=== PATIENT | male | born 1970 | race African-American/Black ===

== ENCOUNTER 2021-08-07 20:10 | Inpatient (IN) | payer MEDICAID ==
[~2021-08-07] VITALS: Ht 172.7 cm; Wt 68.8 kg
[~2021-08-07 20:10] MED LIST: AMIT10TA8 PO; ATEN-60 PO; GABA300C11 GT; GLIP5TAB12 PO; LIS20T GT
[2021-08-07 22:05] LABS: Basophils # (auto) 0.1 10 ^3/uL (0-0.2); Eosinophils # (auto) 0.2 10 ^3/uL (0-0.8); Lymphocytes # (auto) 1.1 10 ^3/uL (0.4-5.4); Monocytes # (auto) 0.7 10 ^3/uL (0-1.3); Monocytes % (auto) 9.7 % (0.0-12.0); Neutrophils # (auto) 5.5 10 ^3/uL (1.6-8.6); White Blood Cell 7.6 10^3/uL (4.4-10.8)
[2021-08-07 22:07] LABS: Eosinophils % (auto) 2.7 % (0.0-7.0); Hemoglobin 7.3 g/dL (13.5-17.5); Lymphocytes % (auto) 13.9 % (10.0-50.0); Mean Corpuscular Hemoglobin 25.9 pg (28.0-32.0); Mean Corpuscular Hgb Conc. 31.8 g/dL (32.0-36.0); Mean Corpuscular Volume 81.6 fL (80.0-100.0); Neutrophils % (auto) 72.7 % (37.0-80.0); Nucleated Red Blood Cells % 0.1 %; Red Blood Cells 2.81 10^6/uL (4.5-5.90)
[2021-08-07 22:08] LABS: Red Cell Distribution Width 20.1 % (11.8-14.3)
[2021-08-07 22:22] LABS: Potassium 3.9 mmol/L (3.5-5.1)
[2021-08-07 22:28] LABS: Albumin 2.4 g/dL (3.4-5.0); BUN/Creatinine Ratio 9.8; Bilirubin, Total 1.4 mg/dL (0.2-1.0); Calcium 9.5 mg/dL (8.5-10.1); Total Protein 7.9 g/dL (6.4-8.2)
[2021-08-08] MEDS ORDERED: dilTIAZem 25 MG/5 ML VIAL IV ONE ×3 (00:15→06:00)
[2021-08-08] MEDS ORDERED: DEXTROSE (50%) 50ML SYRG IV ONE (01:30)
[2021-08-08 04:15] VITALS: BP 144/72
[2021-08-08 04:37] VITALS: BP 154/74
[2021-08-08 04:55] VITALS: BP 160/72
[2021-08-08] MEDS ORDERED: ADENOSINE 6 MG/2 ML INJ IV ONE (06:30)
[2021-08-08] MEDS ORDERED: METOPROLOL TARTRATE 1MG/1ML-5ML VIAL IV ONE ×2 (06:42→07:00)
[2021-08-08] MEDS ORDERED: ONDANSETRON HCL 4 MG/2 ML VIAL IV PRN (07:00)
[2021-08-08] MEDS ORDERED: MORPHINE SULFATE INJECTION 2 MG/ML SYRG IV PRN (07:00)
[2021-08-08] MEDS ORDERED: LABETALOL HCL 5 MG/ML 4ML SYRINGE IV ONE (07:00)
[2021-08-08] MEDS ORDERED: TEMAZEPAM 15 MG CAP PO PRN (07:00)
[2021-08-08] MEDS ORDERED: ACETAMINOPHEN 325 MG TAB PO PRN (07:00)
[2021-08-08] MEDS ORDERED: AMIODARONE 450mg/250ml AE 250 ML IV SCH ×2 (07:45→13:45)
[2021-08-08] MEDS ORDERED: AMIODARONE HCL 150 MG in D5W 5% 100 ML IV ONE (07:45)
[2021-08-08] MEDS ORDERED: AMIODARONE HCL (50 MG/ ML) 3 ML VIAL IV ONE (07:56)
[2021-08-08] MEDS ORDERED: AMIODARONE 450mg/250ml AE 250 ML IV ONE (07:57)
[2021-08-08] MEDS ORDERED: SODIUM CHL 0.9% 1000 ML BAG XX ONE (09:15)
[2021-08-08] MEDS: ZINC SULFATE 220mg CAP or TAB PO SCH (09:30)
[2021-08-08] MEDS: MULTIPLE VITAMIN TAB PO SCH (09:30)
[2021-08-08] MEDS: PANTOPRAZOLE 40 MG/10 ML VIAL INJ IV SCH ×2 (09:30→22:29)
[2021-08-08] MEDS: ASCORBIC ACID 500 MG TAB PO SCH ×2 (09:31→22:29)
[2021-08-08 10:31] LABS: Hematocrit 22.5 % (41.0-53.0); Hemoglobin 7.3 g/dL (13.5-17.5)
[2021-08-08 10:35] LABS: INR 1.22 (0.9-1.15)
[2021-08-08] MEDS ORDERED: GOLYTELY 4L KIT PO ONE (13:00)
[2021-08-08 14:14] LABS: Free T4 (Free Thyroxine) 4.36 ng/dL (0.89-1.76)
[2021-08-08 14:20] LABS: Free T3 17.4 pg/mL (2.3-4.2)
[2021-08-08] MEDS: methIMAzole 5 MG TAB PO SCH ×2 (14:46→22:29)
[2021-08-08 15:33] LABS: Basophils # (auto) 0 10 ^3/uL (0-0.2); Basophils % (auto) 0.6 % (0.0-2.0); Eosinophils # (auto) 0.2 10 ^3/uL (0-0.8); Eosinophils % (auto) 2.2 % (0.0-7.0); Hematocrit 22.7 % (41.0-53.0); Hemoglobin 7.8 g/dL (13.5-17.5); Lymphocytes # (auto) 0.8 10 ^3/uL (0.4-5.4); Lymphocytes % (auto) 11.2 % (10.0-50.0); Mean Corpuscular Hgb Conc. 34.3 g/dL (32.0-36.0); Mean Corpuscular Volume 81.6 fL (80.0-100.0); Monocytes # (auto) 0.7 10 ^3/uL (0-1.3); Monocytes % (auto) 9.9 % (0.0-12.0); Neutrophils # (auto) 5.4 10 ^3/uL (1.6-8.6); Neutrophils % (auto) 76.1 % (37.0-80.0); Nucleated Red Blood Cells % 0.1 %; Red Blood Cells 2.79 10^6/uL (4.5-5.90); Red Cell Distribution Width 18.7 % (11.8-14.3); White Blood Cell 7.1 10^3/uL (4.4-10.8)
[2021-08-08] MEDS ORDERED: ALPRAZolam 0.5 MG TAB PO PRN (16:45)
[2021-08-08] MEDS ORDERED: EPOETIN ALFA-EPBX 10,000 UNIT/1ML VIAL SC ONE (21:00)
[2021-08-09] MEDS ORDERED: METOPROLOL TARTRATE 1MG/1ML-5ML VIAL IV ONE (02:00)
[2021-08-09] MEDS: methIMAzole 5 MG TAB PO SCH ×3 (06:00→21:59)
[2021-08-09] MEDS ORDERED: METOPROLOL TARTRATE 1MG/1ML-5ML VIAL IV PRN (06:30)
[2021-08-09] MEDS: PANTOPRAZOLE 40 MG/10 ML VIAL INJ IV SCH ×2 (10:00→21:58)
[2021-08-09] MEDS: ZINC SULFATE 220mg CAP or TAB PO SCH (10:12)
[2021-08-09] MEDS: AMIODARONE HCL 200 MG TAB PO SCH ×2 (10:12→21:58)
[2021-08-09] MEDS: MULTIPLE VITAMIN TAB PO SCH (10:12)
[2021-08-09] MEDS: ASCORBIC ACID 500 MG TAB PO SCH ×2 (10:13→22:00)
[2021-08-09] MEDS: PROPRANOLOL HCL 20 MG TAB PO SCH ×2 (14:08→21:59)
[2021-08-09 18:00] VITALS: BP 147/62
[2021-08-09 22:00] VITALS: BP 147/62
[2021-08-10] VITALS (7 sets, daily range): BP systolic 122–142; BP diastolic 65–88
[2021-08-10 00:29] LABS: Basophils # (auto) 0.1 10 ^3/uL (0-0.2); Basophils % (auto) 0.8 % (0.0-2.0); Eosinophils # (auto) 0.1 10 ^3/uL (0-0.8); Eosinophils % (auto) 0.8 % (0.0-7.0); Hematocrit 24.8 % (41.0-53.0); Hemoglobin 8.1 g/dL (13.5-17.5); Lymphocytes # (auto) 0.8 10 ^3/uL (0.4-5.4); Mean Corpuscular Hemoglobin 26.6 pg (28.0-32.0); Mean Corpuscular Hgb Conc. 32.7 g/dL (32.0-36.0); Mean Corpuscular Volume 81.3 fL (80.0-100.0); Monocytes # (auto) 0.9 10 ^3/uL (0-1.3); Monocytes % (auto) 10.8 % (0.0-12.0); Neutrophils # (auto) 6.7 10 ^3/uL (1.6-8.6); Neutrophils % (auto) 78.6 % (37.0-80.0); Red Blood Cells 3.05 10^6/uL (4.5-5.90); Red Cell Distribution Width 18.5 % (11.8-14.3); White Blood Cell 8.6 10^3/uL (4.4-10.8)
[2021-08-10 02:53] LABS: Albumin 1.9 g/dL (3.4-5.0); BUN/Creatinine Ratio 8.9; Calcium 8.3 mg/dL (8.5-10.1); Potassium 3.6 mmol/L (3.5-5.1)
[2021-08-10 02:56] LABS: Bilirubin, Total 1.2 mg/dL (0.2-1.0); Total Protein 6.2 g/dL (6.4-8.2)
[2021-08-10] MEDS: NITROGLYCERIN 0.4 MG SL TAB SL PRN (03:20)
[2021-08-10] MEDS ORDERED: GABA300C10 PO (05:32)
[2021-08-10] MEDS ORDERED: LOP2C PO (05:32)
[2021-08-10] MEDS: methIMAzole 5 MG TAB PO SCH ×3 (06:15→22:23)
[2021-08-10] MEDS: PROPRANOLOL HCL 20 MG TAB PO SCH ×3 (06:15→22:22)
[2021-08-10] MEDS ORDERED: SODIUM CHL 0.9% 1000 ML BAG XX ONE (07:00)
[2021-08-10] MEDS: ZINC SULFATE 220mg CAP or TAB PO SCH (10:02)
[2021-08-10] MEDS: PANTOPRAZOLE 40 MG/10 ML VIAL INJ IV SCH ×2 (10:02→22:21)
[2021-08-10] MEDS: AMIODARONE HCL 200 MG TAB PO SCH ×2 (10:03→22:21)
[2021-08-10] MEDS: MULTIPLE VITAMIN TAB PO SCH (10:04)
[2021-08-10] MEDS: ASCORBIC ACID 500 MG TAB PO SCH ×2 (10:04→22:23)
[2021-08-10] MEDS ORDERED: EPOETIN ALFA-EPBX 10,000 UNIT/1ML VIAL SC ONE (21:00)
[2021-08-11 04:40] VITALS: BP 112/59
[2021-08-11] MEDS: PROPRANOLOL HCL 20 MG TAB PO SCH ×3 (06:53→22:02)
[2021-08-11] MEDS: methIMAzole 5 MG TAB PO SCH ×3 (06:59→22:02)
[2021-08-11 09:00] VITALS: BP 135/71
[2021-08-11] MEDS: PANTOPRAZOLE 40 MG/10 ML VIAL INJ IV SCH ×2 (10:00→22:01)
[2021-08-11] MEDS: ZINC SULFATE 220mg CAP or TAB PO SCH (10:00)
[2021-08-11] MEDS ORDERED: GOLYTELY 4L KIT PO ONE (10:00)
[2021-08-11] MEDS: AMIODARONE HCL 200 MG TAB PO SCH ×2 (10:01→22:01)
[2021-08-11] MEDS: MULTIPLE VITAMIN TAB PO SCH (10:01)
[2021-08-11] MEDS: ASCORBIC ACID 500 MG TAB PO SCH ×2 (10:01→22:02)
[2021-08-11 13:00] VITALS: BP 132/68
[2021-08-11] MEDS: HYDROcodone-ACET 5/325MG TAB PO PRN (13:58)
[2021-08-11 21:33] VITALS: BP 116/63
[2021-08-12 04:34] VITALS: BP 115/58
[2021-08-12] MEDS: PROPRANOLOL HCL 20 MG TAB PO SCH ×3 (05:29→22:33)
[2021-08-12] MEDS: methIMAzole 5 MG TAB PO SCH ×3 (05:30→22:31)
[2021-08-12 06:04] LABS: Eosinophils # (auto) 0.2 10 ^3/uL (0-0.8)
[2021-08-12 06:06] LABS: Basophils # (auto) 0.1 10 ^3/uL (0-0.2); Basophils % (auto) 0.6 % (0.0-2.0); Lymphocytes # (auto) 1.1 10 ^3/uL (0.4-5.4); Lymphocytes % (auto) 11.2 % (10.0-50.0); Mean Corpuscular Hemoglobin 26.6 pg (28.0-32.0); Mean Corpuscular Hgb Conc. 32.3 g/dL (32.0-36.0); Mean Corpuscular Volume 82.4 fL (80.0-100.0); Monocytes % (auto) 9.7 % (0.0-12.0); Neutrophils # (auto) 7.7 10 ^3/uL (1.6-8.6); Neutrophils % (auto) 76.5 % (37.0-80.0); Red Cell Distribution Width 18.1 % (11.8-14.3)
[2021-08-12 06:09] LABS: INR 1.25 (0.9-1.15); Partial Thromboplastin Time 31.2 sec (23.6-33.0)
[2021-08-12 09:00] VITALS: BP 120/59
[2021-08-12] MEDS ORDERED: MIDAZOLAM HCL 5 MG/ML-1ML VIAL ONE (09:03)
[2021-08-12] MEDS ORDERED: diphenhdrAMINE HCL 50 MG/1 ML VL ONE (09:03)
[2021-08-12] MEDS ORDERED: fentaNYL CITRATE 100 MCG/2 ML VL ONE (09:03)
[2021-08-12] MEDS ORDERED: SUCR5CHW PO (09:52)
[2021-08-12] MEDS ORDERED: CALC667C PO (09:52)
[2021-08-12] MEDS ORDERED: VENL37.588 PO (09:52)
[2021-08-12] MEDS ORDERED: LOP2C PO (09:52)
[2021-08-12] MEDS ORDERED: ATE50T PO (09:52)
[2021-08-12] MEDS: PANTOPRAZOLE 40 MG/10 ML VIAL INJ IV SCH ×2 (09:57→22:30)
[2021-08-12] MEDS ORDERED: ARIP1TAB7 PO (09:57)
[2021-08-12] MEDS: ZINC SULFATE 220mg CAP or TAB PO SCH (09:57)
[2021-08-12] MEDS ORDERED: TRAZ100T3 PO (09:57)
[2021-08-12] MEDS ORDERED: LOSA-69 PO (09:57)
[2021-08-12] MEDS ORDERED: AMLO-496 PO (09:57)
[2021-08-12] MEDS ORDERED: VENL75CA78 PO (09:57)
[2021-08-12] MEDS ORDERED: ERGO1CAP23 PO (09:57)
[2021-08-12] MEDS: ASCORBIC ACID 500 MG TAB PO SCH ×2 (09:58→22:32)
[2021-08-12] MEDS: AMIODARONE HCL 200 MG TAB PO SCH ×2 (09:58→22:31)
[2021-08-12] MEDS: MULTIPLE VITAMIN TAB PO SCH (09:58)
[2021-08-12] MEDS: HYDROcodone-ACET 5/325MG TAB PO PRN (10:21)
[2021-08-12 12:58] VITALS: BP 112/59
[2021-08-12 14:05] VITALS: BP 105/55
[2021-08-12 17:00] VITALS: BP 130/63
[2021-08-12 22:00] VITALS: BP 118/62
[2021-08-12] MEDS: HYDROCORTISONE ACET 25 MG RECTAL SUPP PR SCH (22:32)
[2021-08-13] MEDS: HYDROcodone-ACET 5/325MG TAB PO PRN ×2 (00:53→14:43)
[2021-08-13 05:00] VITALS: BP 117/64
[2021-08-13] MEDS: PROPRANOLOL HCL 20 MG TAB PO SCH ×3 (05:30→22:52)
[2021-08-13] MEDS: methIMAzole 5 MG TAB PO SCH ×3 (05:30→22:41)
[2021-08-13 06:09] LABS: Hemoglobin 8.8 g/dL (13.5-17.5)
[2021-08-13 06:10] LABS: Hematocrit 26.6 % (41.0-53.0)
[2021-08-13] MEDS ORDERED: SODIUM CHL 0.9% 1000 ML BAG XX ONE (07:00)
[2021-08-13 09:00] VITALS: BP 125/69
[2021-08-13] MEDS: PANTOPRAZOLE 40 MG/10 ML VIAL INJ IV SCH ×2 (10:55→22:39)
[2021-08-13] MEDS: ZINC SULFATE 220mg CAP or TAB PO SCH (10:55)
[2021-08-13] MEDS: MULTIPLE VITAMIN TAB PO SCH (10:56)
[2021-08-13] MEDS: ASCORBIC ACID 500 MG TAB PO SCH ×2 (10:56→22:43)
[2021-08-13] MEDS: AMIODARONE HCL 200 MG TAB PO SCH ×2 (10:57→22:42)
[2021-08-13 13:00] VITALS: BP 123/76
[2021-08-13] MEDS: NITROGLYCERIN 0.4 MG SL TAB SL PRN (14:51)
[2021-08-13 17:00] VITALS: BP 131/69
[2021-08-13] MEDS ORDERED: EPOETIN ALFA-EPBX 4,000 UNIT/ML VIAL SC ONE (21:00)
[2021-08-13 22:00] VITALS: BP 122/68
[2021-08-13] MEDS: DOXYCYCLINE 100 MG TAB/CAP PO SCH (22:42)
[2021-08-13] MEDS: APIXABAN 5 MG TAB PO SCH (22:42)
[2021-08-13] MEDS: HYDROCORTISONE ACET 25 MG RECTAL SUPP PR SCH (22:49)
[2021-08-14 05:02] VITALS: BP 119/64
[2021-08-14] MEDS: methIMAzole 5 MG TAB PO SCH ×3 (05:51→22:38)
[2021-08-14] MEDS: PROPRANOLOL HCL 20 MG TAB PO SCH ×3 (05:51→22:31)
[2021-08-14 08:07] LABS: Basophils # (auto) 0.1 10 ^3/uL (0-0.2); Basophils % (auto) 0.5 % (0.0-2.0); Eosinophils # (auto) 0.3 10 ^3/uL (0-0.8); Eosinophils % (auto) 2.5 % (0.0-7.0); Hematocrit 26.3 % (41.0-53.0); Hemoglobin 8.6 g/dL (13.5-17.5); Lymphocytes % (auto) 9.2 % (10.0-50.0); Mean Corpuscular Hgb Conc. 32.9 g/dL (32.0-36.0); Mean Corpuscular Volume 81.9 fL (80.0-100.0); Monocytes # (auto) 0.8 10 ^3/uL (0-1.3); Monocytes % (auto) 7.4 % (0.0-12.0); Neutrophils # (auto) 8.8 10 ^3/uL (1.6-8.6); Neutrophils % (auto) 80.4 % (37.0-80.0); Red Blood Cells 3.21 10^6/uL (4.5-5.90); Red Cell Distribution Width 18.1 % (11.8-14.3); White Blood Cell 10.9 10^3/uL (4.4-10.8)
[2021-08-14] MEDS: ZINC SULFATE 220mg CAP or TAB PO SCH (10:34)
[2021-08-14] MEDS: MULTIPLE VITAMIN TAB PO SCH (10:34)
[2021-08-14] MEDS: APIXABAN 5 MG TAB PO SCH (10:34)
[2021-08-14] MEDS: AMIODARONE HCL 200 MG TAB PO SCH ×2 (10:34→22:30)
[2021-08-14] MEDS: DOXYCYCLINE 100 MG TAB/CAP PO SCH ×2 (10:35→22:30)
[2021-08-14] MEDS: ASCORBIC ACID 500 MG TAB PO SCH ×2 (10:35→22:30)
[2021-08-14] MEDS: PANTOPRAZOLE 40 MG/10 ML VIAL INJ IV SCH ×2 (10:37→22:32)
[2021-08-14 12:50] VITALS: BP 124/63
[2021-08-14 16:53] VITALS: BP 102/59
[2021-08-14 22:00] VITALS: BP 134/70
[2021-08-14] MEDS: APIXABAN 2.5 MG TAB PO SCH (22:30)
[2021-08-14] MEDS: AMOXICILLIN/CLAVULAN 500 MG TAB PO SCH (22:31)
[2021-08-14] MEDS: HYDROCORTISONE ACET 25 MG RECTAL SUPP PR SCH (22:32)
[2021-08-15 05:02] VITALS: BP 122/62
[2021-08-15] MEDS: methIMAzole 5 MG TAB PO SCH ×3 (06:16→22:46)
[2021-08-15] MEDS: PROPRANOLOL HCL 20 MG TAB PO SCH ×3 (06:17→22:47)
[2021-08-15 08:06] LABS: RPR Non Reactive (Non Reactive)
[2021-08-15 09:00] VITALS: BP 119/80
[2021-08-15] MEDS: APIXABAN 2.5 MG TAB PO SCH ×2 (09:28→22:46)
[2021-08-15] MEDS: DOXYCYCLINE 100 MG TAB/CAP PO SCH ×2 (09:29→22:47)
[2021-08-15] MEDS: ASCORBIC ACID 500 MG TAB PO SCH ×2 (09:30→22:47)
[2021-08-15] MEDS: MULTIPLE VITAMIN TAB PO SCH (09:31)
[2021-08-15] MEDS: ZINC SULFATE 220mg CAP or TAB PO SCH (09:31)
[2021-08-15] MEDS: PANTOPRAZOLE 40 MG/10 ML VIAL INJ IV SCH ×2 (09:32→22:48)
[2021-08-15] MEDS: AMIODARONE HCL 200 MG TAB PO SCH ×2 (09:32→22:46)
[2021-08-15] MEDS: AMOXICILLIN/CLAVULAN 500 MG TAB PO SCH ×2 (09:33→22:46)
[2021-08-15 13:00] VITALS: BP 128/83
[2021-08-15 17:15] VITALS: BP 149/73
[2021-08-15] MEDS: SEVELAMER 800 MG TAB PO SCH (17:51)
[2021-08-15 22:00] VITALS: BP 120/66
[2021-08-15] MEDS: FLORASTOR (S. BOULARDII) 250 MG CAP PO SCH (22:46)
[2021-08-15] MEDS: HYDROCORTISONE ACET 25 MG RECTAL SUPP PR SCH (22:47)
[2021-08-15] MEDS: MORPHINE SULFATE INJECTION 2 MG/ML SYRG IV PRN (23:15)
[2021-08-16 05:00] VITALS: BP 106/62
[2021-08-16] MEDS: methIMAzole 5 MG TAB PO SCH ×3 (05:44→22:42)
[2021-08-16] MEDS: HYDROcodone-ACET 5/325MG TAB PO PRN ×2 (05:45→12:15)
[2021-08-16] MEDS: PROPRANOLOL HCL 20 MG TAB PO SCH ×3 (05:49→22:45)
[2021-08-16] MEDS: MORPHINE SULFATE INJECTION 2 MG/ML SYRG IV PRN (06:58)
[2021-08-16] MEDS ORDERED: SODIUM CHL 0.9% 1000 ML BAG XX ONE (07:00)
[2021-08-16] MEDS: SEVELAMER 800 MG TAB PO SCH ×3 (08:18→18:03)
[2021-08-16] MEDS: AMOXICILLIN/CLAVULAN 500 MG TAB PO SCH ×2 (08:19→22:41)
[2021-08-16] MEDS: ZINC SULFATE 220mg CAP or TAB PO SCH (08:19)
[2021-08-16] MEDS: PANTOPRAZOLE 40 MG/10 ML VIAL INJ IV SCH ×2 (08:19→22:43)
[2021-08-16] MEDS: FLORASTOR (S. BOULARDII) 250 MG CAP PO SCH ×2 (08:20→22:42)
[2021-08-16] MEDS: APIXABAN 2.5 MG TAB PO SCH ×2 (08:20→22:42)
[2021-08-16] MEDS: DOXYCYCLINE 100 MG TAB/CAP PO SCH ×2 (08:20→22:42)
[2021-08-16] MEDS: MULTIPLE VITAMIN TAB PO SCH (08:20)
[2021-08-16] MEDS: AMIODARONE HCL 200 MG TAB PO SCH ×2 (08:20→22:42)
[2021-08-16] MEDS: ASCORBIC ACID 500 MG TAB PO SCH ×2 (08:21→22:44)
[2021-08-16 08:40] LABS: Basophils # (auto) 0.1 10 ^3/uL (0-0.2); Basophils % (auto) 0.5 % (0.0-2.0); Eosinophils # (auto) 0.3 10 ^3/uL (0-0.8); Eosinophils % (auto) 2.1 % (0.0-7.0); Hematocrit 28.7 % (41.0-53.0); Hemoglobin 9.2 g/dL (13.5-17.5); Lymphocytes # (auto) 1.4 10 ^3/uL (0.4-5.4); Lymphocytes % (auto) 8.8 % (10.0-50.0); Mean Corpuscular Hemoglobin 25.9 pg (28.0-32.0); Mean Corpuscular Hgb Conc. 32.1 g/dL (32.0-36.0); Mean Corpuscular Volume 80.6 fL (80.0-100.0); Monocytes # (auto) 1.1 10 ^3/uL (0-1.3); Monocytes % (auto) 6.6 % (0.0-12.0); Neutrophils # (auto) 13.4 10 ^3/uL (1.6-8.6); Red Blood Cells 3.56 10^6/uL (4.5-5.90); Red Cell Distribution Width 18.2 % (11.8-14.3); White Blood Cell 16.3 10^3/uL (4.4-10.8)
[2021-08-16 08:54] LABS: Albumin 1.7 g/dL (3.4-5.0); Calcium 8.1 mg/dL (8.5-10.1); Magnesium 2.5 mg/dL (1.6-2.6)
[2021-08-16 08:58] LABS: BUN/Creatinine Ratio 6.5; Bilirubin, Total 1.5 mg/dL (0.2-1.0)
[2021-08-16 09:00] VITALS: BP 88/51
[2021-08-16 13:00] VITALS: BP 95/53
[2021-08-16 17:00] VITALS: BP 119/63
[2021-08-16] MEDS ORDERED: EPOETIN ALFA-EPBX 4,000 UNIT/ML VIAL SC ONE (21:00)
[2021-08-16 22:00] VITALS: BP 116/61
[2021-08-16] MEDS: HYDROCORTISONE ACET 25 MG RECTAL SUPP PR SCH (22:43)
[2021-08-17 05:00] VITALS: BP 124/62
[2021-08-17 05:56] LABS: Basophils # (auto) 0.1 10 ^3/uL (0-0.2); Basophils % (auto) 0.5 % (0.0-2.0); Eosinophils # (auto) 0.4 10 ^3/uL (0-0.8); Eosinophils % (auto) 3.4 % (0.0-7.0); Hematocrit 27.1 % (41.0-53.0); Hemoglobin 8.8 g/dL (13.5-17.5); Lymphocytes # (auto) 1.1 10 ^3/uL (0.4-5.4); Lymphocytes % (auto) 10.9 % (10.0-50.0); Mean Corpuscular Hemoglobin 26.5 pg (28.0-32.0); Mean Corpuscular Hgb Conc. 32.4 g/dL (32.0-36.0); Mean Corpuscular Volume 81.6 fL (80.0-100.0); Monocytes # (auto) 0.8 10 ^3/uL (0-1.3); Monocytes % (auto) 7.9 % (0.0-12.0); Neutrophils # (auto) 8.1 10 ^3/uL (1.6-8.6); Neutrophils % (auto) 77.3 % (37.0-80.0); Red Blood Cells 3.32 10^6/uL (4.5-5.90); White Blood Cell 10.5 10^3/uL (4.4-10.8)
[2021-08-17 06:10] LABS: INR 1.24 (0.9-1.15)
[2021-08-17] MEDS: methIMAzole 5 MG TAB PO SCH ×3 (06:14→21:36)
[2021-08-17] MEDS: PROPRANOLOL HCL 20 MG TAB PO SCH ×3 (06:15→21:39)
[2021-08-17] MEDS: SEVELAMER 800 MG TAB PO SCH ×3 (08:00→17:57)
[2021-08-17] MEDS: PANTOPRAZOLE 40 MG/10 ML VIAL INJ IV SCH ×2 (08:16→21:40)
[2021-08-17] MEDS: ZINC SULFATE 220mg CAP or TAB PO SCH (08:17)
[2021-08-17] MEDS: AMOXICILLIN/CLAVULAN 500 MG TAB PO SCH ×2 (08:17→21:37)
[2021-08-17] MEDS: AMIODARONE HCL 200 MG TAB PO SCH ×2 (08:18→21:39)
[2021-08-17] MEDS: APIXABAN 2.5 MG TAB PO SCH ×2 (08:19→21:37)
[2021-08-17] MEDS: FLORASTOR (S. BOULARDII) 250 MG CAP PO SCH ×2 (08:20→21:39)
[2021-08-17] MEDS: MULTIPLE VITAMIN TAB PO SCH (08:21)
[2021-08-17] MEDS: ASCORBIC ACID 500 MG TAB PO SCH ×2 (08:22→21:37)
[2021-08-17] MEDS: DOXYCYCLINE 100 MG TAB/CAP PO SCH ×2 (08:22→21:37)
[2021-08-17 09:00] VITALS: BP 107/54
[2021-08-17 17:00] VITALS: BP 123/57
[2021-08-17] MEDS: LOPERAMIDE HCL 2 MG CAP/TAB PO PRN (17:58)
[2021-08-17] MEDS: HYDROCORTISONE ACET 25 MG RECTAL SUPP PR SCH (21:40)
[2021-08-17 22:00] VITALS: BP 117/64
[2021-08-18 05:00] VITALS: BP 119/64
[2021-08-18] MEDS: methIMAzole 5 MG TAB PO SCH ×3 (06:08→22:25)
[2021-08-18] MEDS: PROPRANOLOL HCL 20 MG TAB PO SCH ×3 (06:08→22:00)
[2021-08-18 09:00] VITALS: BP 116/61
[2021-08-18] MEDS: DOXYCYCLINE 100 MG TAB/CAP PO SCH ×2 (09:42→22:25)
[2021-08-18] MEDS: SEVELAMER 800 MG TAB PO SCH ×3 (09:42→18:41)
[2021-08-18] MEDS: APIXABAN 2.5 MG TAB PO SCH ×2 (09:42→22:00)
[2021-08-18] MEDS: ZINC SULFATE 220mg CAP or TAB PO SCH (09:43)
[2021-08-18] MEDS: MULTIPLE VITAMIN TAB PO SCH (09:43)
[2021-08-18] MEDS: AMIODARONE HCL 200 MG TAB PO SCH ×2 (09:43→22:22)
[2021-08-18] MEDS: ASCORBIC ACID 500 MG TAB PO SCH ×2 (09:43→22:25)
[2021-08-18] MEDS: AMOXICILLIN/CLAVULAN 500 MG TAB PO SCH ×2 (09:43→22:22)
[2021-08-18] MEDS: FLORASTOR (S. BOULARDII) 250 MG CAP PO SCH ×2 (09:43→22:23)
[2021-08-18] MEDS: PANTOPRAZOLE 40 MG/10 ML VIAL INJ IV SCH ×2 (09:43→22:21)
[2021-08-18 13:00] VITALS: BP 123/78
[2021-08-18 17:00] VITALS: BP 117/63
[2021-08-18] MEDS ORDERED: ZOLPIDEM TARTRATE 5 MG TAB PO PRN (20:15)
[2021-08-18] MEDS: LOPERAMIDE HCL 2 MG CAP/TAB PO PRN (21:34)
[2021-08-18 22:00] VITALS: BP 123/64
[2021-08-18] MEDS: HYDROCORTISONE ACET 25 MG RECTAL SUPP PR SCH (22:25)
[2021-08-19 05:00] VITALS: BP 112/62
[2021-08-19] MEDS: methIMAzole 5 MG TAB PO SCH ×2 (06:00→13:47)
[2021-08-19] MEDS: PROPRANOLOL HCL 20 MG TAB PO SCH ×2 (06:00→13:46)
[2021-08-19] MEDS ORDERED: SODIUM CHL 0.9% 1000 ML BAG XX ONE (07:00)
[2021-08-19 08:26] LABS: Basophils # (auto) 0.1 10 ^3/uL (0-0.2); Basophils % (auto) 0.5 % (0.0-2.0); Eosinophils # (auto) 0.7 10 ^3/uL (0-0.8); Hemoglobin 8.1 g/dL (13.5-17.5)
[2021-08-19 08:28] LABS: Eosinophils % (auto) 6.3 % (0.0-7.0); Hematocrit 25.2 % (41.0-53.0); Lymphocytes # (auto) 1.2 10 ^3/uL (0.4-5.4); Lymphocytes % (auto) 10.6 % (10.0-50.0); Mean Corpuscular Hemoglobin 25.9 pg (28.0-32.0); Mean Corpuscular Hgb Conc. 32.1 g/dL (32.0-36.0); Mean Corpuscular Volume 80.7 fL (80.0-100.0); Monocytes # (auto) 0.7 10 ^3/uL (0-1.3); Monocytes % (auto) 6.4 % (0.0-12.0); Neutrophils # (auto) 8.8 10 ^3/uL (1.6-8.6); Neutrophils % (auto) 76.2 % (37.0-80.0); Red Blood Cells 3.12 10^6/uL (4.5-5.90); Red Cell Distribution Width 18.3 % (11.8-14.3); White Blood Cell 11.5 10^3/uL (4.4-10.8)
[2021-08-19 09:09] LABS: Albumin 1.4 g/dL (3.4-5.0); BUN/Creatinine Ratio 7.2; Calcium 8.8 mg/dL (8.5-10.1); Magnesium 2.8 mg/dL (1.6-2.6)
[2021-08-19] MEDS: SEVELAMER 800 MG TAB PO SCH ×3 (09:12→19:27)
[2021-08-19] MEDS: PANTOPRAZOLE 40 MG/10 ML VIAL INJ IV SCH ×2 (09:13→23:57)
[2021-08-19] MEDS: AMOXICILLIN/CLAVULAN 500 MG TAB PO SCH (09:14)
[2021-08-19] MEDS: ZINC SULFATE 220mg CAP or TAB PO SCH (09:14)
[2021-08-19] MEDS: AMIODARONE HCL 200 MG TAB PO SCH ×2 (09:15→23:58)
[2021-08-19 09:16] LABS: Bilirubin, Total 1.1 mg/dL (0.2-1.0); Potassium 3.3 mmol/L (3.5-5.1); Total Protein 6.2 g/dL (6.4-8.2)
[2021-08-19] MEDS: APIXABAN 2.5 MG TAB PO SCH (09:16)
[2021-08-19] MEDS: DOXYCYCLINE 100 MG TAB/CAP PO SCH (09:17)
[2021-08-19] MEDS: FLORASTOR (S. BOULARDII) 250 MG CAP PO SCH ×2 (09:17→23:58)
[2021-08-19] MEDS: MULTIPLE VITAMIN TAB PO SCH (09:17)
[2021-08-19] MEDS: ASCORBIC ACID 500 MG TAB PO SCH (09:18)
[2021-08-19 12:51] VITALS: BP 125/63
[2021-08-19 17:00] VITALS: BP 112/67
[2021-08-19 20:00] VITALS: BP 125/63
[2021-08-19] MEDS ORDERED: EPOETIN ALFA-EPBX 4,000 UNIT/ML VIAL SC ONE (21:00)
[2021-08-19] MEDS: HYDROCORTISONE ACET 25 MG RECTAL SUPP PR SCH (22:00)
[2021-08-20] MEDS: AMOXICILLIN/CLAVULAN 500 MG TAB PO SCH ×3 (00:41→22:21)
[2021-08-20] MEDS: methIMAzole 5 MG TAB PO SCH ×4 (00:42→22:00)
[2021-08-20] MEDS: DOXYCYCLINE 100 MG TAB/CAP PO SCH ×3 (00:42→22:21)
[2021-08-20] MEDS: PROPRANOLOL HCL 20 MG TAB PO SCH ×4 (00:42→22:00)
[2021-08-20] MEDS: ASCORBIC ACID 500 MG TAB PO SCH ×3 (00:43→22:00)
[2021-08-20] MEDS ORDERED: SODIUM CHL 0.9% 1000 ML BAG XX ONE (10:00)
[2021-08-20] MEDS ORDERED: ALBUMIN 25% 100 ML IV ONE (10:00)
[2021-08-20] MEDS: FLORASTOR (S. BOULARDII) 250 MG CAP PO SCH ×2 (13:00→22:21)
[2021-08-20] MEDS: MULTIPLE VITAMIN TAB PO SCH (13:00)
[2021-08-20] MEDS: AMIODARONE HCL 200 MG TAB PO SCH ×2 (13:00→22:00)
[2021-08-20] MEDS: ZINC SULFATE 220mg CAP or TAB PO SCH (13:00)
[2021-08-20] MEDS: SEVELAMER 800 MG TAB PO SCH ×2 (13:00→18:00)
[2021-08-20] MEDS: PANTOPRAZOLE 40 MG/10 ML VIAL INJ IV SCH ×2 (13:00→22:00)
[2021-08-20] MEDS ORDERED: LOPERAMIDE HCL 2 MG CAP/TAB PO PRN (13:45)
[2021-08-20 22:00] VITALS: BP 99/56
[2021-08-20] MEDS: HYDROCORTISONE ACET 25 MG RECTAL SUPP PR SCH (22:21)
[2021-08-20] MEDS: CHOLESTYRAMINE 4 GM POWDER GT SCH (23:00)
[2021-08-21] VITALS (10 sets, daily range): BP systolic 101–118; BP diastolic 52–74
[2021-08-21] MEDS: PROPRANOLOL HCL 20 MG TAB PO SCH ×3 (06:00→22:11)
[2021-08-21] MEDS: methIMAzole 5 MG TAB PO SCH ×3 (06:00→22:40)
[2021-08-21] MEDS: SEVELAMER 800 MG TAB PO SCH ×3 (08:00→18:10)
[2021-08-21] MEDS: PANTOPRAZOLE 40 MG/10 ML VIAL INJ IV SCH ×2 (09:38→22:40)
[2021-08-21] MEDS: ASCORBIC ACID 500 MG TAB PO SCH ×2 (09:39→22:10)
[2021-08-21] MEDS: FLORASTOR (S. BOULARDII) 250 MG CAP PO SCH ×2 (09:39→22:10)
[2021-08-21] MEDS: DOXYCYCLINE 100 MG TAB/CAP PO SCH ×2 (09:39→22:41)
[2021-08-21] MEDS: MULTIPLE VITAMIN TAB PO SCH (09:39)
[2021-08-21] MEDS: ZINC SULFATE 220mg CAP or TAB PO SCH (09:39)
[2021-08-21] MEDS: AMIODARONE HCL 200 MG TAB PO SCH ×2 (09:39→22:09)
[2021-08-21] MEDS: AMOXICILLIN/CLAVULAN 500 MG TAB PO SCH ×2 (09:39→22:40)
[2021-08-21] MEDS: CHOLESTYRAMINE 4 GM POWDER GT SCH ×2 (09:40→22:42)
[2021-08-21] MEDS ORDERED: LIDOCAINE 2%HCL (LOCAL ANESTH.) INJ 20ML MDV ONE (09:44)
[2021-08-21 15:40] LABS: Basophils # (auto) 0.1 10 ^3/uL (0-0.2); Eosinophils # (auto) 0.4 10 ^3/uL (0-0.8); Mean Corpuscular Volume 81.8 fL (80.0-100.0); Monocytes # (auto) 0.7 10 ^3/uL (0-1.3)
[2021-08-21 15:42] LABS: Basophils % (auto) 0.6 % (0.0-2.0); Eosinophils % (auto) 3.5 % (0.0-7.0); Hematocrit 27.6 % (41.0-53.0); Hemoglobin 8.5 g/dL (13.5-17.5); Lymphocytes # (auto) 0.9 10 ^3/uL (0.4-5.4); Lymphocytes % (auto) 8.4 % (10.0-50.0); Mean Corpuscular Hemoglobin 25.3 pg (28.0-32.0); Mean Corpuscular Hgb Conc. 30.9 g/dL (32.0-36.0); Neutrophils % (auto) 81.5 % (37.0-80.0); Red Blood Cells 3.38 10^6/uL (4.5-5.90); Red Cell Distribution Width 18.7 % (11.8-14.3)
[2021-08-21 15:51] LABS: Albumin 1.7 g/dL (3.4-5.0); Calcium 8.6 mg/dL (8.5-10.1); Potassium 3.4 mmol/L (3.5-5.1)
[2021-08-21 15:57] LABS: BUN/Creatinine Ratio 6.4; Bilirubin, Total 1.4 mg/dL (0.2-1.0); Total Protein 6.4 g/dL (6.4-8.2)
[2021-08-21] MEDS: APIXABAN 2.5 MG TAB PO SCH (22:09)
[2021-08-21] MEDS: HYDROCORTISONE ACET 25 MG RECTAL SUPP PR SCH (22:40)
[2021-08-22 05:00] VITALS: BP 128/76
[2021-08-22] MEDS: methIMAzole 5 MG TAB PO SCH ×3 (06:00→22:00)
[2021-08-22] MEDS: PROPRANOLOL HCL 20 MG TAB PO SCH ×3 (06:00→21:21)
[2021-08-22 08:00] VITALS: BP 120/63
[2021-08-22 09:00] VITALS: BP 101/59
[2021-08-22] MEDS: PANTOPRAZOLE 40 MG/10 ML VIAL INJ IV SCH ×2 (09:16→22:00)
[2021-08-22] MEDS: ZINC SULFATE 220mg CAP or TAB PO SCH (09:16)
[2021-08-22] MEDS: AMOXICILLIN/CLAVULAN 500 MG TAB PO SCH ×2 (09:16→21:21)
[2021-08-22] MEDS: FLORASTOR (S. BOULARDII) 250 MG CAP PO SCH ×2 (09:16→22:00)
[2021-08-22] MEDS: APIXABAN 2.5 MG TAB PO SCH ×2 (09:16→22:00)
[2021-08-22] MEDS: AMIODARONE HCL 200 MG TAB PO SCH ×2 (09:16→21:21)
[2021-08-22] MEDS: DOXYCYCLINE 100 MG TAB/CAP PO SCH ×2 (09:17→21:22)
[2021-08-22] MEDS: ASCORBIC ACID 500 MG TAB PO SCH ×2 (09:17→21:22)
[2021-08-22] MEDS: MULTIPLE VITAMIN TAB PO SCH (09:17)
[2021-08-22] MEDS: CHOLESTYRAMINE 4 GM POWDER GT SCH ×2 (11:00→23:00)
[2021-08-22] MEDS: SEVELAMER 800 MG TAB PO SCH ×2 (11:53→17:06)
[2021-08-22 13:00] VITALS: BP 101/63
[2021-08-22] MEDS: HYDROCORTISONE ACET 25 MG RECTAL SUPP PR SCH (22:00)
[2021-08-22 23:45] VITALS: BP 124/75
[2021-08-23] MEDS: PROPRANOLOL HCL 20 MG TAB PO SCH ×3 (05:41→23:56)
[2021-08-23] MEDS: methIMAzole 5 MG TAB PO SCH ×3 (05:41→22:50)
[2021-08-23] MEDS: PANTOPRAZOLE 40 MG/10 ML VIAL INJ IV SCH ×2 (09:54→22:00)
[2021-08-23 10:00] VITALS: BP 116/65
[2021-08-23] MEDS: SEVELAMER 800 MG TAB PO SCH ×3 (10:06→17:54)
[2021-08-23] MEDS: AMOXICILLIN/CLAVULAN 500 MG TAB PO SCH ×3 (10:06→22:00)
[2021-08-23] MEDS: MULTIPLE VITAMIN TAB PO SCH ×2 (10:06→10:52)
[2021-08-23] MEDS: DOXYCYCLINE 100 MG TAB/CAP PO SCH ×3 (10:06→22:00)
[2021-08-23] MEDS: APIXABAN 2.5 MG TAB PO SCH ×3 (10:06→22:51)
[2021-08-23] MEDS: ASCORBIC ACID 500 MG TAB PO SCH ×3 (10:07→22:00)
[2021-08-23] MEDS: FLORASTOR (S. BOULARDII) 250 MG CAP PO SCH ×3 (10:07→22:50)
[2021-08-23] MEDS: ZINC SULFATE 220mg CAP or TAB PO SCH ×2 (10:07→10:50)
[2021-08-23] MEDS: AMIODARONE HCL 200 MG TAB PO SCH ×3 (10:07→22:51)
[2021-08-23] MEDS: CHOLESTYRAMINE 4 GM POWDER GT SCH ×2 (10:52→23:00)
[2021-08-23 14:23] VITALS: BP 117/64
[2021-08-23 22:00] VITALS: BP 125/74
[2021-08-23] MEDS: HYDROCORTISONE ACET 25 MG RECTAL SUPP PR SCH (22:00)
[2021-08-24 01:01] VITALS: BP 125/74
[2021-08-24] MEDS: methIMAzole 5 MG TAB PO SCH ×3 (06:00→22:00)
[2021-08-24] MEDS: PROPRANOLOL HCL 20 MG TAB PO SCH ×3 (06:00→22:00)
[2021-08-24] MEDS: PANTOPRAZOLE 40 MG/10 ML VIAL INJ IV SCH ×2 (07:47→22:00)
[2021-08-24] MEDS: SEVELAMER 800 MG TAB PO SCH ×3 (08:00→18:12)
[2021-08-24] MEDS: ASCORBIC ACID 500 MG TAB PO SCH ×2 (10:00→22:00)
[2021-08-24] MEDS: ZINC SULFATE 220mg CAP or TAB PO SCH (10:00)
[2021-08-24] MEDS: CHOLESTYRAMINE 4 GM POWDER GT SCH ×2 (11:00→23:00)
[2021-08-24] MEDS: AMOXICILLIN/CLAVULAN 500 MG TAB PO SCH ×2 (12:31→22:00)
[2021-08-24] MEDS: APIXABAN 2.5 MG TAB PO SCH ×2 (12:31→22:00)
[2021-08-24] MEDS: DOXYCYCLINE 100 MG TAB/CAP PO SCH ×2 (12:31→22:00)
[2021-08-24] MEDS: AMIODARONE HCL 200 MG TAB PO SCH ×2 (12:32→22:00)
[2021-08-24] MEDS: FLORASTOR (S. BOULARDII) 250 MG CAP PO SCH ×2 (12:41→22:00)
[2021-08-24 13:00] VITALS: BP 104/62
[2021-08-24] MEDS: MULTIPLE VITAMIN TAB PO SCH (13:05)
[2021-08-24 17:00] VITALS: BP 121/95
[2021-08-24] MEDS: HYDROCORTISONE ACET 25 MG RECTAL SUPP PR SCH (22:00)
[2021-08-25 04:50] VITALS: BP 137/76
[2021-08-25] MEDS: methIMAzole 5 MG TAB PO SCH ×3 (06:00→22:00)
[2021-08-25] MEDS: PROPRANOLOL HCL 20 MG TAB PO SCH ×3 (06:00→22:00)
[2021-08-25] MEDS: SEVELAMER 800 MG TAB PO SCH ×3 (08:00→18:00)
[2021-08-25] MEDS: MULTIPLE VITAMIN TAB PO SCH (10:00)
[2021-08-25] MEDS: AMOXICILLIN/CLAVULAN 500 MG TAB PO SCH ×2 (10:00→22:00)
[2021-08-25] MEDS: FLORASTOR (S. BOULARDII) 250 MG CAP PO SCH ×2 (10:00→22:00)
[2021-08-25] MEDS: ASCORBIC ACID 500 MG TAB PO SCH ×2 (10:00→22:00)
[2021-08-25] MEDS: APIXABAN 2.5 MG TAB PO SCH ×2 (10:00→22:00)
[2021-08-25] MEDS: PANTOPRAZOLE 40 MG/10 ML VIAL INJ IV SCH ×2 (10:00→22:00)
[2021-08-25] MEDS: DOXYCYCLINE 100 MG TAB/CAP PO SCH ×2 (10:00→22:00)
[2021-08-25] MEDS: ZINC SULFATE 220mg CAP or TAB PO SCH (10:00)
[2021-08-25] MEDS: AMIODARONE HCL 200 MG TAB PO SCH ×2 (10:00→22:00)
[2021-08-25] MEDS: CHOLESTYRAMINE 4 GM POWDER GT SCH ×2 (11:00→23:00)
[2021-08-25 13:00] VITALS: BP 136/73
[2021-08-25 17:00] VITALS: BP 129/79
[2021-08-25] MEDS: HYDROCORTISONE ACET 25 MG RECTAL SUPP PR SCH (22:00)
[2021-08-26] MEDS: PROPRANOLOL HCL 20 MG TAB PO SCH ×3 (06:00→22:00)
[2021-08-26] MEDS: methIMAzole 5 MG TAB PO SCH ×3 (06:00→22:00)
[2021-08-26 08:00] VITALS: BP 141/75
[2021-08-26] MEDS: SEVELAMER 800 MG TAB PO SCH ×3 (08:00→18:00)
[2021-08-26] MEDS: AMIODARONE HCL 200 MG TAB PO SCH ×2 (10:00→22:00)
[2021-08-26] MEDS: ASCORBIC ACID 500 MG TAB PO SCH ×2 (10:00→22:00)
[2021-08-26] MEDS: FLORASTOR (S. BOULARDII) 250 MG CAP PO SCH ×2 (10:00→22:00)
[2021-08-26] MEDS: PANTOPRAZOLE 40 MG/10 ML VIAL INJ IV SCH ×2 (10:00→22:00)
[2021-08-26] MEDS: ZINC SULFATE 220mg CAP or TAB PO SCH (10:00)
[2021-08-26] MEDS: MULTIPLE VITAMIN TAB PO SCH (10:00)
[2021-08-26] MEDS: APIXABAN 2.5 MG TAB PO SCH ×2 (10:00→22:00)
[2021-08-26] MEDS: DOXYCYCLINE 100 MG TAB/CAP PO SCH (10:00)
[2021-08-26] MEDS: AMOXICILLIN/CLAVULAN 500 MG TAB PO SCH (10:00)
[2021-08-26] MEDS: CHOLESTYRAMINE 4 GM POWDER GT SCH ×2 (11:00→22:50)
[2021-08-26 16:00] VITALS: BP 127/70
[2021-08-26] MEDS: Nepro With Carbsteady ButterPecan 8oz Carton PO SCH (18:11)
[2021-08-26] MEDS: Pro-Stat SF 30ml Vanilla PO SCH (18:12)
[2021-08-26 22:00] VITALS: BP 127/71
[2021-08-26] MEDS: HYDROCORTISONE ACET 25 MG RECTAL SUPP PR SCH (22:00)
[2021-08-26] MEDS ORDERED: ZOLPIDEM TARTRATE 5 MG TAB PO PRN (22:00)
[2021-08-27 05:00] VITALS: BP 140/78
[2021-08-27] MEDS: methIMAzole 5 MG TAB PO SCH ×2 (06:00→14:00)
[2021-08-27] MEDS: PROPRANOLOL HCL 20 MG TAB PO SCH ×2 (06:00→14:00)
[2021-08-27] MEDS: Pro-Stat SF 30ml Vanilla PO SCH (08:00)
[2021-08-27] MEDS: Nepro With Carbsteady ButterPecan 8oz Carton PO SCH (08:00)
[2021-08-27] MEDS: SEVELAMER 800 MG TAB PO SCH ×2 (08:00→12:00)
[2021-08-27] MEDS: ASCORBIC ACID 500 MG TAB PO SCH (10:00)
[2021-08-27] MEDS: ZINC SULFATE 220mg CAP or TAB PO SCH (10:00)
[2021-08-27] MEDS: APIXABAN 2.5 MG TAB PO SCH (10:00)
[2021-08-27] MEDS: MULTIPLE VITAMIN TAB PO SCH (10:00)
[2021-08-27] MEDS: PANTOPRAZOLE 40 MG/10 ML VIAL INJ IV SCH (10:00)
[2021-08-27] MEDS: FLORASTOR (S. BOULARDII) 250 MG CAP PO SCH (10:00)
[2021-08-27] MEDS: AMIODARONE HCL 200 MG TAB PO SCH (10:00)
[2021-08-27] MEDS: CHOLESTYRAMINE 4 GM POWDER GT SCH (11:00)
== END 2021-08-27 15:33 | DRG 254 ==
LOC: ER 20:15 → TELE 08-08 06:55 → TELE-WESTW 08-09 18:28
PROVIDERS: ADMIT Internal Medicine; ATTEND Internal Medicine
PROC: 5A1D70Z Performance of Urinary Filtration, Intermittent, Less than 6 Hours Per Day (ICD-10-PCS; principal; 2021-08-08)
PROC: 30233N1 Transfusion of Nonautologous Red Blood Cells into Peripheral Vein, Percutaneous Approach (ICD-10-PCS; 2021-08-08)
PROC: 5A1D70Z Performance of Urinary Filtration, Intermittent, Less than 6 Hours Per Day (ICD-10-PCS; 2021-08-10)
PROC: 0DJD8ZZ Inspection of Lower Intestinal Tract, Via Natural or Artificial Opening Endoscopic (ICD-10-PCS; 2021-08-12)
PROC: 5A1D70Z Performance of Urinary Filtration, Intermittent, Less than 6 Hours Per Day (ICD-10-PCS; 2021-08-14)
PROC: 5A1D70Z Performance of Urinary Filtration, Intermittent, Less than 6 Hours Per Day (ICD-10-PCS; 2021-08-16)
PROC: 5A1D70Z Performance of Urinary Filtration, Intermittent, Less than 6 Hours Per Day (ICD-10-PCS; 2021-08-20)
PROC: 0W9B3ZZ Drainage of Left Pleural Cavity, Percutaneous Approach (ICD-10-PCS; 2021-08-21)
DX: K64.8 Other hemorrhoids (principal); I13.2 Hypertensive heart and chronic kidney disease with heart failure and with stage 5 chronic kidney disease, or end stage renal disease; I31.3 Pericardial effusion (noninflammatory); J90 Pleural effusion, not elsewhere classified; R18.8 Other ascites; J81.1 Chronic pulmonary edema; E83.39 Other disorders of phosphorus metabolism; D63.1 Anemia in chronic kidney disease; E88.09 Other disorders of plasma-protein metabolism, not elsewhere classified; I48.92 Unspecified atrial flutter; N18.6 End stage renal disease; E11.22 Type 2 diabetes mellitus with diabetic chronic kidney disease; N25.81 Secondary hyperparathyroidism of renal origin; A49.9 Bacterial infection, unspecified; K80.20 Calculus of gallbladder without cholecystitis without obstruction; R00.0 Tachycardia, unspecified; K52.9 Noninfective gastroenteritis and colitis, unspecified; I50.9 Heart failure, unspecified; I48.91 Unspecified atrial fibrillation; E05.90 Thyrotoxicosis, unspecified without thyrotoxic crisis or storm; E87.6 Hypokalemia; I25.10 Atherosclerotic heart disease of native coronary artery without angina pectoris; J98.11 Atelectasis; K64.4 Residual hemorrhoidal skin tags; M89.9 Disorder of bone, unspecified; K57.90 Diverticulosis of intestine, part unspecified, without perforation or abscess without bleeding; N50.9 Disorder of male genital organs, unspecified; D72.829 Elevated white blood cell count, unspecified; Z91.14 Patient's other noncompliance with medication regimen; Z79.899 Other long term (current) drug therapy
CPT/HCPCS: 36415; 45378; 71045; 71250; 72131; 74176; 76604; 76942; 80053; 82962; 83605; 83735; 83986; 84439; 84443; 84481; 84484; 85014; 85018; 85025; 85610; 85730; 86592; 86706; 86850; 86900; 86901; 86920; 87077; 87081; 87186; 87205; 87340; 87493; 89051; 90935; 93005; 93306; 96374; 96375; 97110; 97163; 97530; C9113; G0378; J0153; J2250; J7060; P9047